=== PATIENT | male | born 1975 | race Caucasian/White ===

== ENCOUNTER 2020-06-12 21:02 | Emergency (ER) | payer BC, MEDICAID ==
[~2020-06-12] VITALS: Ht 165.1 cm; Wt 77.6 kg
[2020-06-12] MEDS ORDERED: ONDANSETRON 2MG/ML, 2ML ONE (21:20)
[2020-06-12] MEDS ORDERED: ONDANSETRON 2MG/ML, 2ML IVPush ONE (21:30)
[2020-06-12] MEDS ORDERED: SODIUM CHLORIDE FLUSH 10ML SYR IVF ONE (21:30)
[2020-06-12] MEDS ORDERED: SODIUM CHLORIDE 0.9% 1,000ML IVBOLUS ONE (21:30)
[2020-06-12] MEDS ORDERED: MORPHINE SULFATE 4 MG/ML, 1ML IVPush PRN (21:30)
[2020-06-12] MEDS ORDERED: ALBU8.5H8 HOMEINH (21:57)
[2020-06-12] MEDS ORDERED: OMNIPAQUE 350 MG/ML, 100ML BOTTLE ONE (22:00)
[2020-06-12 22:01] LABS: BASOPHILS % (AUTO) 1 % (0-1); EOSINOPHILS % (AUTO) 0 % (1-7); LYMPHOCYTES % (AUTO) 18 % (22-44); MEAN CORPUSCULAR HGB CONC 33.9 g/dL (33.2-36.2); MEAN PLATELET VOLUME 8.6 fL (7.4-10.4); MONOCYTES % (AUTO) 15 % (2-9); NEUTROPHILS % (AUTO) 67 % (42-75); PLATELET COUNT 298 x10^3/uL (130-400); RED BLOOD COUNT 5.49 x10^6/uL (4.38-5.82); RED CELL DISTRIBUTION WIDTH 13.5 % (9.4-14.8)
--- NOTE | 2020-06-12 22:03 | NUR ---
PATIENT RESTING IN BED. NO GUARDING OF ABDOMEN. C/O CRAMPING INTERMITTENTLY. 1/10 PAIN AT THIS TIME. REQUEST NAUSEA MEDICATION. PATIENT MADE AWARE BY RN THAT HE IS NPO UNTIL WE CAN OBTAIN CT AND HAVE RESULTS AND DX. STEADY GAIT TO BATHROOM. A&OX4. MOTHER AT BEDSIDE. CALL [facility] IN REACH. SAFETY MAINTAINED. WARM BLANKETS PROVIDED. WILL CONTINUE TO MONITOR
[2020-06-12 22:14] LABS: ALANINE AMINOTRANSFERASE 30 U/L (12-78); ALBUMIN 3.9 g/dL (3.4-5.0); ANION GAP 8 mmol/L (5-15); CALCIUM 8.7 mg/dL (8.5-10.1); CHLORIDE 105 mmol/L (98-107); CREATININE 0.85 mg/dL (0.7-1.3)
[2020-06-12 22:16] LABS: ALKALINE PHOSPHATASE 100 U/L (45-117); BILIRUBIN,TOTAL 1.5 mg/dL (0.2-1.0); TOTAL PROTEIN 7.6 g/dL (6.4-8.2)
[2020-06-12 22:17] LABS: MICROSCOPIC INDICATED
--- NOTE | 2020-06-12 22:45 | NUR ---
PATIENT AMBULATED UP TO BATHROOM. IN NAD. REPORTS NAUSEA HAS GOTTEN BETTER
[2020-06-12 22:46] LABS: MD SCAN
[2020-06-12 23:21] VITALS: BP 159/94
--- NOTE | 2020-06-12 23:34 | NUR ---
DISCHARGE INSTRUCTIONS REVIEWED WITH PATIENT AND HIS MOTHER AT BEDSIDE. PATIENT HAD NO FURTHER QUESTIONS. PRESCRIPTION HANDED DIRECTLY TO PATIENT. IV REMOVED PER DC PROTOCOL. IN NAD. AMBULATED TO DC DESK WITH STEADY GAIT. ALL PERSONAL BELONGINGS WITH PATIENT.
== END 2020-06-12 23:46 | disposition home or self-care (01) ==
LOC: ED 23:07
DX: K29.00 Acute gastritis without bleeding (principal); D72.829 Elevated white blood cell count, unspecified; R10.33 Periumbilical pain; R11.2 Nausea with vomiting, unspecified; J45.909 Unspecified asthma, uncomplicated; F17.210 Nicotine dependence, cigarettes, uncomplicated
CPT/HCPCS: 36415; 74177; 80053; 81001; 83690; 85025; 87086; 96361; 96374; 99285; 99406; J2405; J7030; Q9967